=== PATIENT | male | born 1990 | race Hispanic/Latino ===

== ENCOUNTER 2021-01-27 09:11 | Emergency (ER) | payer SELFPAY ==
--- NOTE | 2021-01-27 10:30 | EDM.PDOC ---
<Sharad Wood Jayshree - Last Filed: 01/27/21 10:56> ED HPI GENERAL MEDICAL PROBLEM - General Chief Complaint: Respiratory Problem Stated Complaint: COUGH,SORE THROAT Time Seen by Provider: 01/27/21 11:00 - Related Data Allergies Allergy/AdvReac Type Severity Reaction Status Date / Time Penicillins Allergy Nausea and Verified 01/27/21 09:46 Vomiting Home Meds: Home Meds dexAMETHasone [Dexamethasone] 6 mg PO BID #14 tablet 01/27/21 [Rx] Past Medical History - Past Health History Medical/Surgical History: Denies Medical/Surgical History Social & Family History - Tobacco Use Tobacco Use Status *Q: Never Tobacco User - Recreational Drug Use Recreational Drug Use: No Departure - Departure Disposition: Home, Self-Care 01 Clinical Impression: COVID-19 - Discharge Information Prescriptions: dexAMETHasone [Dexamethasone] 6 mg PO BID #14 tablet Instructions: COVID-19 Frequently Asked Questions, 10 Things You Can Do to Manage Your COVID-19 Symptoms at Home - [facility] (12/04/2019), COVID-19: Quarantine vs. Isolation - [facility] (05/21/2020), COVID-19: What to Do if You Are Sick - [facility] (06/04/2020) Referrals: PCP,None [Primary Care Provider] - Forms: ED Department Discharge Additional Instructions: You were seen in the emergency department today with Covid symptoms. A Covid test was completed and this is positive. You do have Covid. Chest x-ray was also completed and it shows that you do have some pneumonia in your lungs however this is viral and it cannot be treated with antibiotics. However, you were given steroids while in the emergency department. I have sent a prescription for more steroids to [facility] in [place]. You can pick this up today. You will need to take 1-1/2 tabs twice daily until gone. This should help decrease the severity and length of time that you have a cold it. You were also given a breathing device called an incentive spirometer while in the emergency department. Recommend that you use this 10 times every hours to help keep your lungs inflated and prevent worsening pneumonia. You will need to isolate yourself for 10 days to prevent the spread of Covid. You may take Tylenol 650 mg by mouth every 4 hours as needed for fever or body aches. Be sure to go home and rest. Drink plenty of fluids to stay hydrated. Should your condition worsen or change or you become more short of breath return to the em ergency department for reevaluation. Sepsis Event Note (ED) - Evaluation Sepsis Screening Result: No Definite Risk <Ilene Carmona - Last Filed: 01/27/21 11:43> ED HPI GENERAL MEDICAL PROBLEM - General Source of Information: Reports: Patient History Limitations: Reports: No Limitations, Language Barrier (Patient is only partially Japanese speaking.) - History of Present Illness INITIAL COMMENTS - FREE TEXT/NARRATIVE: 30-year-old male presents the emergency department with a 5-day history of cough, runny nose and sinus congestion and generalized body aches. The patient states this started about 5 days ago with the body aches and has progressed. He denies any headache, he denies abdominal pain, nausea, vomiting or diarrhea. He denies fever. States he is otherwise healthy. He does not smoke and only drinks the whole on occasion. He states he has been drinking plenty of fluids and his appetite has still been good. He has not had Covid nor has he had the Covid vaccine. ED ROS GENERAL - Review of Systems Review Of Systems: Comprehensive ROS is negative, except as noted in HPI. ED EXAM, GENERAL - Physical Exam Exam: See Below Exam Limited By: No Limitations General Appearance: Alert, WD/WN, No Apparent Distress Eye Exam: Right Eye: Other (Sclera is erythematous) Ears: Normal External Exam, Hearing Grossly Normal Nose: Normal Inspection Throat/Mouth: Normal Inspection, Normal Lips, Normal Voice, No Airway Compromise Head: Atraumatic Neck: Normal Inspection, Supple Respiratory/Chest: No Respiratory Distress, No Accessory Muscle Use, Chest Non- Tender. No: Lungs Clear, Normal Breath Sounds (Fine crackles noted to the bilateral bases posteriorly) Cardiovascular: Normal Peripheral Pulses, Regular Rate, Rhythm, No Edema, No Murmur Peripheral Pulses: 2+: Radial (L), Radial (R) GI/Abdominal: Normal Bowel Sounds, Soft, Non-Tender, No Distention (Male) Exam: Deferred Rectal (Males) Exam: Deferred Back Exam: Normal Inspection Extremities: Normal Inspection Neurological: Alert, Oriented, Normal Cognition Psychiatric: Normal Affect, Normal Mood Skin Exam: Warm, Dry, Intact, Normal Color, No Rash Lymphatic: No Adenopathy Course - Vital Signs Text/Narrative:: Stated above, patient presents with 5-day history of Covid type symptoms. Upon assessment, the patient does have erythema noted to his right sclera. Patient is warm to touch. He does not appear short of breath although his O2 saturations are 94% on room air. He does have fine crackles noted to bilateral bases posteriorly. He will be swabbed for Covid and we will obtain a chest x- ray. Last Recorded V/S: Last Vital Signs Temp 98.8 F 01/27/21 09:43 Pulse 102 H 01/27/21 11:15 Resp 16 01/27/21 11:15 BP 121/76 01/27/21 11:15 Pulse Ox 94 L 01/27/21 11:15 - Orders/Labs/Meds Orders: Active Orders 24 hr Category Date Time Status RT Incentive Spirometry [RC] Q1HWA Care 01/27/21 11:12 Active Labs: Laboratory Tests 01/27/21 Range/Units 09:46 Influenza Type A RNA Negative (NEGATIVE) Influenza Type B RNA Negative (NEGATIVE) SARS-CoV-2 RNA ([facility]) Positive H (NEGATIVE) Meds: Medications Discontinued Medications Generic Name Dose Route Start Last Admin Trade Name Nishant PRN Reason Stop Dose Admin Dexamethasone 6 mg 01/27/21 11:12 01/27/21 11:19 Dexamethasone 4 Mg Tab PO 01/27/21 11:13 6 mg ONETIME ONE Administration - Re-Assessments/Exams Free Text/Narrative Re-Assessment/Exam: 01/27/21 11:37 Portable 2 view of the chest shows scattered infiltrates noted to bilateral lungs. Covid test is positive. Patient will be given dexamethasone 6 mg p.o. x1 dose now, I have ordered for respiratory to obtain incentive spirometer and educate patient on home use. He will be discharged home with a prescription for dexamethasone 6 mg twice daily for 5 days. He will also need to quarantine for the next 10 days. Departure - Departure Time of Disposition: 11:38 Condition: Good Sepsis Event Note (ED) - Focused Exam Vital Signs: Vital Signs Temp Pulse Resp BP Pulse Ox 01/27/21 11:15 102 H 16 121/76 94 L 01/27/21 09:51 108 H 18 119/83 94 L 01/27/21 09:43 98.8 F 107 H 14 129/79 94 L - My Orders Last 24 Hours: My Active Orders 01/27/21 11:12 RT Incentive Spirometry [RC] Q1HWA - Assessment/Plan Last 24 Hours: My Active Orders 01/27/21 11:12 RT Incentive Spirometry [RC] Q1HWA
[2021-01-27 10:42] LABS: CORONAVIRUS COVID-19 NAA POSITIVE (NEGATIVE)
--- NOTE | 2021-01-27 10:54 | CR ---
Chest: Frontal view of the chest was obtained. Comparison: No prior chest imaging is available. Parenchymal densities are seen within the right mid and right lower lung. Similar findings are also noted within the left lung. Heart size and mediastinum are normal. Bony structures show nothing acute. Impression: 1. Patchy increased density on both sides of the chest. Please correlate if patient has COVID as an etiology. Diagnostic code #3
[2021-01-27] MEDS ORDERED: Dexamethasone 4 MG Tab PO ONE (11:12)
== END 2021-01-27 12:05 | disposition home or self-care (01) ==
LOC: JD.ED 09:11
DX: U07.1 COVID-19 (principal); Z88.0 Allergy status to penicillin
CPT/HCPCS: 0240U; 71045; 99283; J8540